=== PATIENT | male | born 1970 | race Two or more races ===

== ENCOUNTER 2016-06-13 01:03 | Observation (INO) | payer OTHER ==
[2016-06-13 01:41] LABS: BASO % 0.2 % (0-2); EOS % 1.8 % (0-7); EOSINOPHIL ABSOLUTE COUNT 0.2 tho/cmm (0.0-0.7); HCT-HEMATOCRIT 44.2 % (36.0-53.5); HGB-HEMOGLOBIN 15.5 gm/dl (13.5-17.0); IMMATURE GRANULOCYTES ABSOLUTE 0.01 tho/cmm (0-0.03); IMMATURE GRANULOCYTES PERCENT 0.1 % (0-0.3); LYMPH % 29.4 % (20-45); LYMPH ABSOLUTE COUNT 2.6 tho/cmm (0.8-4.5); MCH (MEAN CORPUSCULAR HGB) 31.4 pg (28.0-32.0); MCHC MEAN CORPUSCULAR HGB CONC 35.1 % (32.0-36.0); MCV (MEAN CELL VOLUME) 89.7 fl (82.0-96.0); MONO % 11.6 % (0-12); NEUTROPHIL ABSOLUTE COUNT 5.1 tho/cmm (1.6-8.0); NEUTROPHIL-AUTOMATED 5.1 tho/cmm (1.6-8.0); NEUTROPHILS % 56.9 % (40-80); PLATELET COUNT 245 tho/cmm (150-450); RED BLOOD COUNT 4.93 mil/cmm (4.40-5.70); RED CELL DISTRIBUTION WIDTH 12.5 % (12.4-16.4)
[2016-06-13 02:08] LABS: ALB/GLOB RATIO 1.1 (0.8-2.0); ALKALINE PHOSPHATASE 92 U/L (33-138); ALT/SGPT 38 U/L (12-78); BILIRUBIN,TOTAL 0.9 mg/dl (0.0-1.5); BLOOD UREA NITROGEN 15 mg/dl (6-24); CALCIUM 8.5 mg/dl (8.5-10.5); CARBON DIOXIDE-VENOUS 26 mmol/L (22-32); CHLORIDE 107 mmol/l (96-110); CREATININE 0.86 mg/dl (0.60-1.30); GLUCOSE 105 mg/dL (70-110); SODIUM 141 mmol/L (135-145); eGFR VALUE FOR BLACK >90 mL/Min
[2016-06-13 02:09] LABS: ANION GAP 12 mmol/L (0-20); AST/SGOT 36 U/L (10-40); POTASSIUM 3.6 mmol/L (3.7-5.1)
[2016-06-13] MEDS ORDERED: METHOTREXA25 MG/113 SC (02:26)
[2016-06-13] MEDS ORDERED: [UNRECOGNIZED DRUG - OTHER] (02:28)
[2016-06-13] MEDS ORDERED: BIOXTRON (02:29)
[2016-06-13] MEDS ORDERED: ALLOPURINOL300 M1 PO (02:30)
[2016-06-13] MEDS ORDERED: NORVASC10 M2 PO (02:30)
[2016-06-13] MEDS ORDERED: COREG6.25 M1 PO (02:31)
[2016-06-13] MEDS ORDERED: PREDNISONE10 M1 PO (02:32)
[2016-06-13] MEDS ORDERED: FOLIC ACID1 M1 PO (02:33)
[2016-06-13] MEDS ORDERED: PEPTO-BISM262 MG/11 PO (02:35)
[2016-06-13] MEDS ORDERED: TUMERIC CURCUMIN PO (02:36)
[2016-06-13] MEDS ORDERED: FOLIC ACID PO (02:36)
[2016-06-13] MEDS ORDERED: COLCRYS0.6 M1 PO (02:37)
[2016-06-13] MEDS ORDERED: PANTOPRAZOLE SO40 M3 PO (02:38)
[2016-06-13] MEDS ORDERED: STOMACH RELIEF262 MG PO (02:38)
[2016-06-13] MEDS ORDERED: SLOW-MAG PO (02:38)
[2016-06-13 04:51] LABS: CHOLESTEROL 208 mg/dl (120-200); HDL CHOLESTEROL 38 mg/dl (40-60); VLDL 93 mg/dl (0-30)
[2016-06-13 04:55] LABS: TRIGLYCERIDES 467 mg/dl (<149)
[2016-06-13] MEDS ORDERED: ASPIRIN81 M1 PO (11:53)
== END 2016-06-13 13:10 ==
LOC: EDMED 01:03 → EMR2 03:03 → CAR1 03:04
PROVIDERS: Physician Assistant; ADMIT Internal Medicine Cardiovascular Disease
DX: I08.1 Rheumatic disorders of both mitral and tricuspid valves (principal); I10 Essential (primary) hypertension; E78.00 Pure hypercholesterolemia, unspecified; M06.9 Rheumatoid arthritis, unspecified; Z79.899 Other long term (current) drug therapy
CPT/HCPCS: A9500; G0378